=== PATIENT | male | born 1940 | race Caucasian/White ===

== ENCOUNTER 2016-09-15 09:40 | Emergency (ER) | payer MEDICARE, OTHER | END 2016-09-15 11:47 | disposition home or self-care (01) | LOC: FER 09:40 | DX: S56.912A Strain of unspecified muscles, fascia and tendons at forearm level, left arm, initial encounter (principal); I10 Essential (primary) hypertension; Z85.118 Personal history of other malignant neoplasm of bronchus and lung; X50.0XXA Overexertion from strenuous movement or load, initial encounter; Y93.F2 Activity, caregiving, lifting | CPT/HCPCS: 73090; 99283 ==

== ENCOUNTER 2016-09-28 20:51 | Inpatient (IN) | payer MEDICARE, OTHER ==
[2016-09-28 21:47] LABS: BASOPHIL 0.2 % (0-2); EOSINOPHIL 2.3 % (0-7); HCT 32.7 % (42.0-52.0); HGB 10.6 g/dl (13.2-18.0); LYMPHOCYTE 10.5 % (15-48); MCH 30.1 pg (25.0-31.0); MCHC 32.4 g/dL (32.0-36.0); MCV 92.9 fL (78.0-100.0); MONOCYTE 13.5 % (0-12); MPV 10.5 fL (6.0-9.5); NEUTROPHIL 73.5 % (41-80); PLT 263 K/uL (150-400); RBC 3.52 M/uL (4.70-6.00); RDW 14.3 % (11.5-14.0); WBC 8.4 K/uL (4.0-10.5)
[2016-09-28 21:56] LABS: INR 1.34 (0.9-1.2); PROTHROMBIN TIME 16.1 SECONDS (11.7-14.0)
[2016-09-28 21:59] LABS: LACTIC ACID 1.5 mmol/L (0.5-2.2)
[2016-09-28 22:02] LABS: ALBUMIN 2.8 g/dL (3.4-4.8); BILIRUBIN - TOTAL 0.3 mg/dL (0.1-1.0); CREATININE 1.2 mg/dL (0.7-1.2); GLOBULIN (CALCULATION) 4.2 g/dL (2.2-4.2); POTASSIUM 4.1 mmol/L (3.5-5.1)
[2016-09-28 22:04] LABS: MYOGLOBIN 29 ng/mL (26-65); TROPONIN T < 0.010 ng/mL
[2016-09-28 22:08] LABS: PTT 83.2 SECONDS (23.2-31.4)
[2016-09-28 23:35] LABS: BILIRUBIN NEGATIVE (NEGATIVE); BLOOD NEGATIVE Ery/uL (NEGATIVE); CLARITY CLEAR (CLEAR); COLOR YELLOW (YELLOW); GLUCOSE (U) NORMAL (NORMAL); KETONE (U) 1+ (SMALL) mg/dL (NEGATIVE); LEUKOCYTES NEGATIVE Leu/uL (NEGATIVE); NITRITE NEGATIVE (NEGATIVE); PROTEIN NEGATIVE (NEGATIVE); UROBILINOGEN 0.2 mg/dL (0.2-1.0); pH 5.5 (5.0-9.0)
[2016-09-29 05:13] LABS: BASOPHIL 0.5 % (0-2); EOSINOPHIL 1.6 % (0-7); HCT 31.3 % (42.0-52.0); HGB 9.9 g/dl (13.2-18.0); LYMPHOCYTE 16.3 % (15-48); MCH 29.5 pg (25.0-31.0); MCHC 31.6 g/dL (32.0-36.0); MCV 93.2 fL (78.0-100.0); MONOCYTE 12.6 % (0-12); MPV 10.5 fL (6.0-9.5); PLT 243 K/uL (150-400); RBC 3.36 M/uL (4.70-6.00); RDW 14.2 % (11.5-14.0); WBC 6.4 K/uL (4.0-10.5)
[2016-09-29 05:35] LABS: CREATININE 1.1 mg/dL (0.7-1.2); POTASSIUM 3.9 mmol/L (3.5-5.1)
[2016-09-30 04:18] LABS: BASOPHIL 0.2 % (0-2); EOSINOPHIL 0.4 % (0-7); LYMPHOCYTE 8.3 % (15-48); MCH 29.9 pg (25.0-31.0); MCHC 32.3 g/dL (32.0-36.0); MCV 92.5 fL (78.0-100.0); MONOCYTE 9.2 % (0-12); MPV 10.7 fL (6.0-9.5); NEUTROPHIL 81.9 % (41-80); PLT 262 K/uL (150-400); RBC 3.35 M/uL (4.70-6.00); RDW 14.1 % (11.5-14.0); WBC 8.6 K/uL (4.0-10.5)
[2016-09-30 04:51] LABS: IRON 16 ug/dL (44-196); IRON % SATURATION 13 %SAT (20-50); MAGNESIUM 1.46 mg/dL (1.40-2.10); POTASSIUM 4.1 mmol/L (3.5-5.1); TIBC (TOTAL IRON + UIBC) 120 U/L (228-428); UIBC 104 ug/dL (112-346)
[2016-09-30 05:09] LABS: FOLIC ACID (SERUM) > 20.0 ng/mL (5.6-45.8)
[2016-09-30] MEDS ORDERED: ELAVIL25 MG PO (13:43)
[2016-09-30] MEDS ORDERED: ATENOLOL25 MG PO (13:44)
[2016-09-30] MEDS ORDERED: TRAMADOL HCL50 MG PO (13:44)
[2016-09-30] MEDS ORDERED: DIGITEK125 MCG PO (13:44)
[2016-09-30] MEDS ORDERED: CEFDINIR300 MG PO (13:44)
[2016-09-30] MEDS ORDERED: NIFEREX150 MG PO (13:45)
== END 2016-09-30 15:37 | disposition home health service (06) | DRG 871 ==
LOC: FER 20:51 → FMS 23:45
PROVIDERS: Emergency Medicine Emergency Medical Services; Hospitalist; ADMIT Internal Medicine
DX: A41.9 Sepsis, unspecified organism (principal); J96.01 Acute respiratory failure with hypoxia; G93.41 Metabolic encephalopathy; J90 Pleural effusion, not elsewhere classified; C78.00 Secondary malignant neoplasm of unspecified lung; F03.90 Unspecified dementia, unspecified severity, without behavioral disturbance, psychotic disturbance, mood disturbance, and anxiety; N39.0 Urinary tract infection, site not specified; E86.0 Dehydration; C67.9 Malignant neoplasm of bladder, unspecified; D50.9 Iron deficiency anemia, unspecified; M19.90 Unspecified osteoarthritis, unspecified site; K29.70 Gastritis, unspecified, without bleeding; Z66 Do not resuscitate; Z80.41 Family history of malignant neoplasm of ovary; F17.200 Nicotine dependence, unspecified, uncomplicated
CPT/HCPCS: 36415; 36600; 70450; 71010; 71250; 80048; 80053; 80061; 81003; 82550; 82553; 82607; 82746; 82803; 83540; 83550; 83605; 83735; 83874; 84145; 84484; 85025; 85044; 85610; 85730; 86403; 87040; 87076; 87077; 87088; 87186; 87804; 87899; 93005; 94010; 94762; 97116; 97162; 97166; 97530; 97530-GP; 97535; 99285; J2060

== ENCOUNTER 2016-10-01 14:32 | Emergency (ER) | payer MEDICARE, OTHER ==
[~2016-10-01 14:32] MED LIST: ATENOLOL25 MG PO; CEFDINIR300 MG PO; DIGITEK125 MCG PO; ELAVIL25 MG PO; NIFEREX150 MG PO; TRAMADOL HCL50 MG PO
[2016-10-01 15:21] LABS: BASOPHIL 0.4 % (0-2); EOSINOPHIL 0.8 % (0-7); HCT 30.7 % (42.0-52.0); LYMPHOCYTE 13.6 % (15-48); MCH 30.1 pg (25.0-31.0); MCHC 32.6 g/dL (32.0-36.0); MCV 92.5 fL (78.0-100.0); MONOCYTE 12.7 % (0-12); MPV 10.6 fL (6.0-9.5); NEUTROPHIL 72.5 % (41-80); PLT 282 K/uL (150-400); RBC 3.32 M/uL (4.70-6.00); RDW 14.1 % (11.5-14.0); WBC 7.3 K/uL (4.0-10.5)
[2016-10-01 15:44] LABS: ALBUMIN 2.6 g/dL (3.4-4.8); BILIRUBIN - TOTAL 0.3 mg/dL (0.1-1.0); POTASSIUM 3.9 mmol/L (3.5-5.1); TOTAL PROTEIN 6.6 g/dL (6.4-8.3)
== END 2016-10-01 17:48 | disposition home or self-care (01) ==
LOC: FER 14:32
PROVIDERS: Emergency Medicine
DX: C34.90 Malignant neoplasm of unspecified part of unspecified bronchus or lung (principal); R05 Cough; R41.0 Disorientation, unspecified
CPT/HCPCS: 36415; 71010; 80053; 85025; 99285